=== PATIENT | male | born 1960 | race Caucasian/White ===

== ENCOUNTER 2018-12-21 13:01 | Day surgery (SDC) | payer BC ==
[~2018-12-21] VITALS: Ht 180.3 cm; Wt 82.9 kg
[~2018-12-21 13:01] MED LIST: ACET325; AMOCLA875 PO; AMOX500; ATOR10 PO; ATOR80 PO; Aspirin EC81 MG PO; EFFIENT10 MG PO; HYDACE5; HYDR-86 PO; IBUP600 PO; Ibuprofen Ib200 MG; METO25ER PO; NITR.4SL SL; PANT40 PO; RANI150 PO; [UNRECOGNIZED DRUG - REMARK]
== END 2018-12-21 15:30 | disposition home or self-care (01) ==
LOC: ORSCSDS 13:01
PROVIDERS: Internal Medicine Gastroenterology
PROC: 0DJD8ZZ Inspection of Lower Intestinal Tract, Via Natural or Artificial Opening Endoscopic (ICD-10-PCS; principal; 2018-12-21 14:30)
DX: Z12.11 Encounter for screening for malignant neoplasm of colon (principal); K57.30 Diverticulosis of large intestine without perforation or abscess without bleeding; Z86.010 Personal history of colon polyps; Z87.891 Personal history of nicotine dependence; K21.9 Gastro-esophageal reflux disease without esophagitis; Z79.82 Long term (current) use of aspirin; Z79.899 Other long term (current) drug therapy
CPT/HCPCS: 86803; J2704; J7120

== ENCOUNTER 2019-09-20 08:58 | Day surgery (SDC) | payer BC ==
[~2019-09-20] VITALS: Ht 180.3 cm; Wt 88.0 kg
[~2019-09-20 08:58] MED LIST changes: +EZET10 PO
--- NOTE | 2019-09-20 12:30 | NUR ---
10CC AIR REMOVED FROM R WRIST TR BAND. -BLEEDING OR SWELLING.
--- NOTE | 2019-09-20 13:31 | NUR ---
DISCHARGE PT REMAINED A&OX3 AND DENIED ANY QUESTIONS AT THIS TIME. IV DC'D WITH TIP IN TACT. R RADIAL SITE-TR BAND REMOVED-CLOTH DOT BANAGE AND WHITE BOARD IN PLACE-CDI NO HEMATOMA NOTED. DISCHARGE PAPERWORK GONE OVER WITH PT. PT VERBALLY STATED THE UNDERSTANDING OF THE DISCHARGE EDUCATION AND DENIED ANY QUESTIONS AT THIS TIME. PT ABLE TO DRESS SELF INDEPENATLY. PT REFUSED RIDE IN WHEELCHAIR AND WALKED OUT WITH SPOUSE.
== END 2019-09-20 13:00 | disposition home or self-care (01) ==
LOC: MHTC 08:58
PROC: B205YZZ Plain Radiography of Left Heart using Other Contrast (ICD-10-PCS; principal; 2019-09-20)
PROC: 4A023N7 Measurement of Cardiac Sampling and Pressure, Left Heart, Percutaneous Approach (ICD-10-PCS; principal; 2019-09-20)
PROC: B201YZZ Plain Radiography of Multiple Coronary Arteries using Other Contrast (ICD-10-PCS; principal; 2019-09-20)
DX: I25.119 Atherosclerotic heart disease of native coronary artery with unspecified angina pectoris (principal); R07.89 Other chest pain; E78.5 Hyperlipidemia, unspecified; Z95.5 Presence of coronary angioplasty implant and graft; Z79.82 Long term (current) use of aspirin; Z79.899 Other long term (current) drug therapy
CPT/HCPCS: 93458; 99152; 99153; C1769; C1894; J1644; J2250; J3010; J7030; Q9967

== ENCOUNTER 2022-08-01 07:25 | Day surgery (SDC) | payer BC ==
[~2022-08-01] VITALS: Ht 180.3 cm; Wt 84.0 kg
[2022-08-01] MEDS ORDERED: MELO7.5 PO (07:49)
--- NOTE | 2022-08-01 08:28 | NUR ---
DR URBINA IN TO SEE PATIENT PRE-PROCEDURE
--- NOTE | 2022-08-01 11:55 | NUR ---
patient A&O. sitting up in recovery room recliner. TR band in place. no hematoma, no bleeding.
--- NOTE | 2022-08-01 14:08 | NUR ---
removal of air from TR band started
--- NOTE | 2022-08-01 15:29 | NUR ---
PT DRESSED, TR BAND REMOVED, DRESSING AND R WRIST SPLINT PLACED, IV DC'D INTACT. PT CHOOSES TO AMBULATE OUT WITH FAMILY DRIVING PT HOME
== END 2022-08-01 15:30 | disposition home or self-care (01) ==
LOC: MHTC 07:25
DX: I25.119 Atherosclerotic heart disease of native coronary artery with unspecified angina pectoris (principal); R07.9 Chest pain, unspecified; R94.39 Abnormal result of other cardiovascular function study; E78.5 Hyperlipidemia, unspecified; K44.9 Diaphragmatic hernia without obstruction or gangrene; I10 Essential (primary) hypertension; Z79.82 Long term (current) use of aspirin; I25.2 Old myocardial infarction
CPT/HCPCS: 76937; 93458; 99152; 99153; C1769; C1887; C1894; J1644; J2250; J3010; J7030; J7050; Q9967